=== PATIENT | female | born 1980 | race Caucasian/White ===

== ENCOUNTER 2018-01-01 09:15 | Emergency (ER) | payer OTHER ==
[2018-01-01 09:31] VITALS: BP 113/62; PULSE 99; TEMP 98.3; BMI 23.9
[2018-01-01] MEDS ORDERED: KETOROLAC TROMETHAMINE 30 MG/1 ML VIAL IM ONE (10:41)
[2018-01-01] MEDS ORDERED: DEXAMETHASONE LIQUID 0.5 MG/5 ML 240 ML BULK BOTTLE PO ONE (10:41)
[2018-01-01] MEDS ORDERED: DEXAMETHASONE SOD PHOSPHATE 10 MG/1 ML VIAL ONE (10:46)
[2018-01-01] MEDS ORDERED: KETOROLAC TROMETHAMINE 30 MG/1 ML VIAL ONE (10:47)
--- NOTE | 2018-01-01 11:02 | PDOC ---
History of Present Illness - General Chief Complaint: Cold Symptoms Stated Complaint: FEVER, THROAT PAIN Time Seen by Provider: 01/01/18 10:10 History Source: Patient Exam Limitations: No Limitations - History of Present Illness Initial Comments: 01/01/18 10:57 This is a 37-year-old woman with past medical history of asthma who presents to the emergency department with 2 days of sore throat fevers with MAXIMUM TEMPERATURE of 103.2F, headaches. Patient went to another hospital was given Toradol and discharged. Patient is been taken Tylenol most recently 11 PM to control fevers. She denies coughing, shortness of breath, chest pain, abdominal pain, nausea, vomiting, diarrhea. Past History - Past Medical History Allergies/Adverse Reactions: Allergies Allergy/AdvReac Type Severity Reaction Status Date / Time metronidazole [From Flagyl] Allergy rash, Verified 01/01/18 09:28 difficulty breathing piperacillin sodium Allergy rash, Verified 01/01/18 09:28 [From Zosyn] difficulty breathing latex AdvReac Rash Verified 01/01/18 09:28 Home Medications: Ambulatory Orders Azithromycin 500 mg PO DAILY #5 tablet 01/01/18 Anemia: Yes Asthma: Yes Cancer: No Cardiac Disorders: No CVA: No COPD: No CHF: No Dementia: No Diabetes: No GI Disorders: No Disorders: No HTN: No Hypercholesterolemia: No Liver Disease: No Psychiatric Problems: Yes (anxiety) Seizures: No Thyroid Disease: No - Reproductive History (#): 5 Para: 4 Spontaneous : 1 - Immunization History Immunization Up to Date: Yes - Suicide/Smoking/Psychosocial Hx Smoking Status: No Smoking History: Never smoked Have you smoked in the past 12 months: No Number of Cigarettes Smoked Daily: 0 If you are a former smoker, when did you quit?: 1999 Hx Alcohol Use: No Drug/Substance Use Hx: No Substance Use Type: None Hx Substance Use Treatment: No Review of Systems - Review of Systems Able to Perform ROS?: Yes Is the patient limited Finnish proficient: No Constitutional: Yes: See HPI HEENTM: Yes: See HPI Respiratory: No: Symptoms reported Cardiac (ROS): No: Symptoms Reported ABD/GI: No: Symptoms Reported : No: Symptoms Reported Musculoskeletal: No: Symptoms Reported Integumentary: No: Symptoms Reported Neurological: No: Symptoms reported *Physical Exam - Vital Signs Last Vital Signs Temp Pulse Resp BP Pulse Ox 98.3 F 99 H 19 113/62 98 01/01/18 09:28 01/01/18 09:28 01/01/18 09:28 01/01/18 09:28 01/01/18 09:28 - Physical Exam General Appearance: Yes: Appropriately Dressed. No: Apparent Distress HEENT: positive: TMs Normal, Pharyngeal Erythema, Tonsillar Exudate, Tonsillar Erythema Neck: positive: Trachea midline, Lymphadenopathy (R), Lymphadenopathy (L) Respiratory/Chest: positive: Lungs Clear, Normal Breath Sounds. negative: Respiratory Distress, Accessory Muscle Use Cardiovascular: positive: Regular Rhythm, Regular Rate. negative: Murmur Gastrointestinal/Abdominal: positive: Normal Bowel Sounds, Soft. negative: Tender Musculoskeletal: positive: Normal Inspection Extremity: positive: Normal Inspection Integumentary: positive: Normal Color, Dry, Warm Neurologic: positive: disease management nurse II-XII NML intact, Fully Oriented, Alert, Normal Mood/ Affect, Normal Response, Motor Strength 03/08 ED Treatment Course - Medications Given in the ED: ED Medications Discontinued Medications Generic Name Dose Route Start Last Admin Trade Name Freq PRN Reason Stop Dose Admin Dexamethasone 10 mg 01/01/18 10:41 01/01/18 10:51 Decadron Liquid - PO 01/01/18 10:42 10 mg ONCE ONE Administration Ketorolac Tromethamine 30 mg 01/01/18 10:41 01/01/18 10:51 Toradol Injection - IM 01/01/18 10:42 30 mg ONCE ONE Administration Medical Decision Making - Medical Decision Making 01/01/18 11:00 A/P: 37-year-old woman with history of asthma who presents with 2 days of headaches, fevers, sore throat. Oropharynx with pharyngeal and tonsillar erythema and tonsillar exudate. Halitosis present No sinus tenderness elicited. No nasal drainage present Anterior cervical lymphadenopathy present with tenderness noted on palpation. Lungs clear to auscultation bilaterally. DDx: Streptococcal pharyngitis versus viral illness Rapid strep testing, Toradol, Decadron Reassess 01/01/18 11:49 Rapid strep testing is positive. I will treat the patient with azithromycin 500 mg daily for 5 days. Patient instructed on how to treat the symptoms. *DC/Admit/Observation/Transfer Diagnosis at time of Disposition: Strep throat - Discharge Dispostion Disposition: HOME Condition at time of disposition: Stable Admit: No - Prescriptions Prescriptions: Azithromycin 500 mg PO DAILY #5 tablet - Referrals - Patient Instructions Additional Instructions: Take azithromycin as prescribed. Salt water garggles. Throw away your toothbrush in 1 week and start using a new toothbrush. No sharing of drinks, utensils or toothbrushes. Take Motrin as directed by manager logistic's instructions. Return to ED for worsening fevers, worsening sore throat, chest pain, shortness of breath or any other concerns. - Post Discharge Activity
== END 2018-01-01 11:52 | disposition home or self-care (01) ==
LOC: JERFT 09:15
PROC: 3E0233Z Introduction of Anti-inflammatory into Muscle, Percutaneous Approach (ICD-10-PCS; principal; 2018-01-01)
DX: J02.0 Streptococcal pharyngitis (principal); J45.909 Unspecified asthma, uncomplicated; F41.9 Anxiety disorder, unspecified; Z87.891 Personal history of nicotine dependence
CPT/HCPCS: 87070; 87430; 99281-25

== ENCOUNTER 2018-07-05 17:02 | Emergency (ER) | payer OTHER ==
[2018-07-05 17:14] VITALS: BP 141/82; PULSE 73; TEMP 98.3; BMI 25.0
[2018-07-05] MEDS ORDERED: SODIUM CHLORIDE 1,000 ML IV STA (17:30)
[2018-07-05] MEDS ORDERED: METOCLOPRAMIDE HCL INJECTION 10 MG/2 ML VIAL IVPUSH ONE (17:30)
[2018-07-05] MEDS ORDERED: KETOROLAC TROMETHAMINE 15 MG/ML VIAL IVPUSH ONE (17:30)
--- NOTE | 2018-07-05 17:38 | PDOC ---
History of Present Illness - General Chief Complaint: Headache Stated Complaint: PAIN Time Seen by Provider: 07/05/18 17:24 History Source: Patient Exam Limitations: No Limitations - History of Present Illness Initial Comments: 07/05/18 18:03 Patient is a 38F with history of migraines, asthma and hysterectomy here today complaining of a headache that started yesterday. She states that the headache slowly started yesterday spreading from her head to her neck and finally to her shoulder. She says that she took nothing this morning. Denies sound and light sensitivity. Denies fevers, chills, nausea, vomiting. Past History - Past Medical History Allergies/Adverse Reactions: Allergies Allergy/AdvReac Type Severity Reaction Status Date / Time metronidazole [From Flagyl] Allergy rash, Verified 07/05/18 17:14 difficulty breathing piperacillin sodium Allergy rash, Verified 07/05/18 17:14 [From Zosyn] difficulty breathing latex AdvReac Rash Verified 07/05/18 17:14 Home Medications: Ambulatory Orders Cetirizine HCl [Zyrtec -] 10 mg PO DAILY 07/05/18 Anemia: Yes Asthma: Yes Cancer: No Cardiac Disorders: No CVA: No COPD: No CHF: No Dementia: No Diabetes: No GI Disorders: No Disorders: No HTN: No Hypercholesterolemia: No Liver Disease: No Psychiatric Problems: Yes (anxiety) Seizures: No Thyroid Disease: No Other medical history: migraines - Reproductive History (#): 5 Para: 4 Spontaneous : 1 - Immunization History Immunization Up to Date: Yes - Suicide/Smoking/Psychosocial Hx Smoking Status: No Smoking History: Never smoked Have you smoked in the past 12 months: No Number of Cigarettes Smoked Daily: 0 If you are a former smoker, when did you quit?: 1999 Hx Alcohol Use: No Drug/Substance Use Hx: No Substance Use Type: None Hx Substance Use Treatment: No Review of Systems - Review of Systems Comments:: 07/05/18 18:33 GENERAL/CONSTITUTIONAL: No fever or chills. No weakness. HEAD, EYES, EARS, NOSE AND THROAT: No change in vision. No ear pain or discharge. No sore throat. CARDIOVASCULAR: No chest pain or shortness of breath RESPIRATORY: No cough, wheezing, or hemoptysis. GASTROINTESTINAL: No nausea, vomiting, diarrhea or constipation. GENITOURINARY: No dysuria, frequency, or change in urination. MUSCULOSKELETAL: No joint or muscle swelling or pain. No neck or back pain. SKIN: No rash NEUROLOGIC: + headache, no vertigo, loss of consciousness, or change in strength /sensation. ENDOCRINE: No increased thirst. No abnormal weight change HEMATOLOGIC/LYMPHATIC: No anemia, easy bleeding, or history of blood clots. ALLERGIC/IMMUNOLOGIC: No hives or skin allergy. *Physical Exam - Vital Signs Last Vital Signs Temp Pulse Resp BP Pulse Ox 98.3 F 73 18 141/82 99 07/05/18 17:11 07/05/18 17:11 07/05/18 17:11 07/05/18 17:11 07/05/18 17:11 - Physical Exam Comments: 07/05/18 18:33 GENERAL: Awake, alert, and fully oriented, in no acute distress HEAD: No signs of trauma, normocephalic, atraumatic EYES: PERRLA, EOMI, sclera anicteric, conjunctiva clear ENT: Auricles normal inspection, hearing grossly normal, nares patent, oropharynx clear without exudates. Moist mucosa NECK: Normal ROM, supple, no lymphadenopathy, JVD, or masses LUNGS: No distress, speaks full sentences, clear to auscultation bilaterally HEART: Regular rate and rhythm, normal S1 and S2, no murmurs, rubs or gallops, peripheral pulses normal and equal bilaterally. ABDOMEN: Soft, nontender, normoactive bowel sounds. No guarding, no rebound. No masses EXTREMITIES: Normal inspection, Normal range of motion, no edema. No clubbing or cyanosis. NEUROLOGICAL: Cranial nerves II through XII grossly intact. Normal speech, normal gait, no focal sensorimotor deficits SKIN: Warm, Dry, normal turgor, no rashes or lesions noted. ED Treatment Course - LABORATORY CBC & Chemistry Diagram: 07/05/18 18:58 07/05/18 18:58 Medical Decision Making - Medical Decision Making 07/05/18 18:34 Patient is 38F here today with headache. Vital signs normal and stable. No red flags for head bleed. Believe patient has tension headache. Will treat with fluids, toradol, reglan. Patient has hysterectomy, no need for test. 07/05/18 19:42 CBC, CMP reassuring. Patient reassessed, feeling better. Will discharge home with ibuprofen. *DC/Admit/Observation/Transfer Diagnosis at time of Disposition: Headache - Discharge Dispostion Disposition: HOME Condition at time of disposition: Good Decision to Admit order: No - Referrals Referrals: Michael Fortune [Primary Care Provider] - Michel Flores DO [Staff Physician] - - Patient Instructions Printed Discharge Instructions: DI for Hormonal and Tension Headaches Additional Instructions: Please drink plenty of water and take ibuprofen as needed and prescribed for pain. Please return to the ED if you have any new, worsening or concerning symptoms. Please follow up with your primary care provider and neurologist this week. - Post Discharge Activity
[2018-07-05] MEDS ORDERED: METOCLOPRAMIDE HCL INJECTION 10 MG/2 ML VIAL ONE (17:45)
[2018-07-05] MEDS ORDERED: KETOROLAC TROMETHAMINE 15 MG/ML VIAL ONE (17:46)
[2018-07-05 19:08] LABS: HEMATOCRIT 32.2 % (32.4-45.2); HEMOGLOBIN 10.9 GM/dL (10.7-15.3); MCH 29.8 pg (25.7-33.7); MCHC 33.8 g/dl (32.0-36.0); MEAN PLT VOLUME 7.9 fl (7.5-11.1); PLATELET COUNT 281 K/MM3 (134-434); RBC 3.66 M/mm3 (3.60-5.2); RDW 14.4 % (11.6-15.6); WHITE BLOOD COUNT 4.9 K/mm3 (4.0-10.0)
[2018-07-05 19:33] LABS: ALBUMIN 3.4 g/dl (3.4-5.0); ANION GAP 9 MMOL/L (8-16); BILIRUBIN,TOTAL 0.2 mg/dL (0.2-1.0); BLOOD UREA NITROGEN 12 mg/dL (7-18); CALCIUM 7.7 mg/dL (8.5-10.1); CHLORIDE 112 mmol/L (98-107); CO2 26 mmol/L (21-32); CREATININE 0.6 mg/dL (0.55-1.02); GLUCOSE,RANDOM 86 mg/dL (74-106); POTASSIUM 3.6 mmol/L (3.5-5.1); SGOT/AST 11 U/L (15-37); SGPT/ALT 18 U/L (12-78); SODIUM 147 mmol/L (136-145); TOT PROT 6.6 g/dl (6.4-8.2)
[2018-07-05 19:34] LABS: ALK PHOS 51 U/L (45-117)
[2018-07-05] MEDS ORDERED: diazePAM 5 MG TABLET PO ONE (19:51)
--- NOTE | 2018-07-05 19:54 | PDOC ---
Attending Attestation - Resident Resident Name: Faisal Mahan - ED Attending Attestation I have performed the following: I have examined & evaluated the patient, The case was reviewed & discussed with the resident, I agree w/resident's findings & plan, Exceptions are as noted - HPI HPI: 07/05/18 19:50 38-year-old female history of migraines for today complaining of a headache that started yesterday. No fevers chills no nausea no vomiting does have mild photophobia that she has pain on looking also complaining of right shoulder pain and muscle spasm no head trauma does have a history of frequent migraines usually relieved with Motrin however this one was more severe and longer lasting than usual no associated muscle weakness. - Physicial Exam PE: 07/05/18 19:51 Awake alert no acute distress except for motions are intact cranial nerves II through XII are intact lungs are clear bilaterally heart is regular without any murmurs rubs or gallops abdomen is soft and nontender extremities are warm and well-perfused neurologically patient is ANO 3 she has 5 out of 5 muscle strength in all 4 extremities. Muscle skeletal exam reviews trapezial muscle spasm and tenderness on the right side - Medical Decision Making 07/05/18 19:52 38-year-old female history of migraines here today with likely migraine headache. In addition patient has trapezial spasm likely contributing differential includes anemia, lecture laterality, is status post hysterectomy therefore is not of concern. Plan treat with Toradol and Reglan IV fluids CBC CMP and reassess On reassessment patient states her pain is nearly gone will give Valium 5 mg by mouth to relieve right trapezial muscle spasm and aid with the tension component we'll give referral to neurology as the patient does have frequent migraines
[2018-07-05] MEDS ORDERED: diazePAM 5 MG TABLET ONE (20:15)
== END 2018-07-05 20:23 | disposition home or self-care (01) ==
LOC: JER 17:02
PROC: 3E033GC Introduction of Other Therapeutic Substance into Peripheral Vein, Percutaneous Approach (ICD-10-PCS; principal; 2018-07-05)
PROC: 3E0337Z Introduction of Electrolytic and Water Balance Substance into Peripheral Vein, Percutaneous Approach (ICD-10-PCS; 2018-07-05)
DX: R51 Headache (principal)
CPT/HCPCS: 36415; 80053; 85027; 96361; 96374; 99282-25; J7030

== ENCOUNTER 2019-06-05 01:31 | Emergency (ER) | payer OTHER ==
--- NOTE | 2019-06-05 01:55 | PDOC ---
History of Present Illness - General Stated Complaint: SORE THROAT Time Seen by Provider: 06/05/19 01:55 - History of Present Illness Initial Comments: 38 year old female with PMH of seasonal allergies presenting with a sore throat and cough for the past 0.5 days. Patient states that her youngest daughter also became sick this morning while her eldest daughter had these symptoms two days ago which have since resolved. She denies fevers, chills, nausea, vomiting, diarrhea, or inability to tolerate PO. She has not tried any medication at home for her throat pain. She states that she cannot have more than 500 mg of tylenol or she starts to get facial swelling. However 500 mg does not cause any ill effect. Past History - Past Medical History Allergies/Adverse Reactions: Allergies Allergy/AdvReac Type Severity Reaction Status Date / Time metronidazole [From Flagyl] Allergy rash, Verified 06/05/19 02:04 difficulty breathing piperacillin sodium Allergy rash, Verified 06/05/19 02:04 [From Zosyn] difficulty breathing latex AdvReac Rash Verified 06/05/19 02:04 Home Medications: Ambulatory Orders Cetirizine HCl [Zyrtec -] 10 mg PO DAILY 07/05/18 Benzonatate [Tessalon Pearls -] 100 mg PO TID #21 capsule 06/05/19 Anemia: Yes Asthma: Yes Cancer: No Cardiac Disorders: No CVA: No COPD: No CHF: No Dementia: No Diabetes: No GI Disorders: No Disorders: No HTN: No Hypercholesterolemia: No Liver Disease: No Psychiatric Problems: Yes (anxiety) Seizures: No Thyroid Disease: No - Reproductive History (#): 5 Para: 4 Spontaneous : 1 - Immunization History Immunization Up to Date: Yes - Suicide/Smoking/Psychosocial Hx Smoking Status: No Smoking History: Never smoked Have you smoked in the past 12 months: No Number of Cigarettes Smoked Daily: 0 If you are a former smoker, when did you quit?: 1999 Hx Alcohol Use: No Drug/Substance Use Hx: No Substance Use Type: None Hx Substance Use Treatment: No Review of Systems - Review of Systems Constitutional: No: Chills, Diaphoresis, Fever HEENTM: No: Eye Pain, Blurred Vision, Tearing Respiratory: Yes: Cough. No: Shortness of Breath, Stridor, Wheezing, Productive cough Cardiac (ROS): No: Chest Pain, Edema, Irregular Heart Rate ABD/GI: No: Diarrhea, Nausea, Vomiting : No: Burning, Dysuria, Discharge Musculoskeletal: No: Back Pain, Joint Pain Integumentary: No: Bruising, Change in Color Neurological: No: Headache, Numbness, Paresthesia Psychiatric: No: Anxiety, Depression Hematologic/Lymphatic: No: Anemia, Blood Clots, Easy Bleeding *Physical Exam - Physical Exam General Appearance: Yes: Nourished, Appropriately Dressed. No: Apparent Distress HEENT: positive: EOMI, DAVID, Pharyngeal Erythema, Nasal Congestion. negative: Normal ENT Inspection, Pharynx Normal, Tonsillar Exudate, Tonsillar Erythema, Rhinorrhea Neck: positive: Trachea midline, Normal Thyroid, Supple. negative: Tender, Rigid, Stridor, Lymphadenopathy (R), Lymphadenopathy (L) Respiratory/Chest: positive: Lungs Clear, Normal Breath Sounds. negative: Chest Tender, Respiratory Distress, Accessory Muscle Use Cardiovascular: positive: Regular Rhythm, Regular Rate Gastrointestinal/Abdominal: positive: Normal Bowel Sounds, Flat, Soft. negative : Tender Lymphatic: negative: Adenopathy, Tenderness Musculoskeletal: positive: Normal Inspection. negative: Decreased Range of Motion Extremity: positive: Normal Capillary Refill, Normal Inspection, Normal Range of Motion. negative: Tender Integumentary: positive: Normal Color, Dry, Warm Neurologic: positive: Fully Oriented, Alert, Normal Mood/Affect, Normal Response , Motor Strength 5/5 Medical Decision Making - Medical Decision Making 38 year old female with mild cough and sore throat or the past 0.5 days without use of any medication. She has multiple sick contacts with nearly identical symptoms. PE significant for pharyngeal erythema but no tonsilar swelling or exudates. Given 325 Tylenol with good relief of symptoms and discharged with Tylenol use instructions + Tesalon Perls. *DC/Admit/Observation/Transfer Diagnosis at time of Disposition: Sore throat - Discharge Dispostion Disposition: HOME Condition at time of disposition: Improved Decision to Admit order: No - Prescriptions Prescriptions: Benzonatate [Tessalon Pearls -] 100 mg PO TID #21 capsule - Referrals Referrals: Rosanne Messer [Primary Care Provider] - - Patient Instructions Printed Discharge Instructions: Sore Throat Additional Instructions: Please use the tessalon perles and tylenol as needed. Please see your PCP as needed. Please return to the ED if you have new or worsening symptoms. - Post Discharge Activity
[2019-06-05 02:05] VITALS: BP 111/67; PULSE 68; TEMP 98.2; BMI 25.9
[2019-06-05] MEDS ORDERED: ACETAMINOPHEN 500 MG TABLET (FP) PO ONE (02:19)
[2019-06-05] MEDS ORDERED: ACETAMINOPHEN 325 MG TABLET (FP) PO ONE (02:25)
[2019-06-05] MEDS ORDERED: ACETAMINOPHEN 325 MG TABLET (FP) ONE (02:26)
--- NOTE | 2019-06-05 02:49 | PDOC ---
Attending Attestation - Resident Resident Name: Leighann Burger - ED Attending Attestation I have performed the following: I have examined & evaluated the patient, The case was reviewed & discussed with the resident, I agree w/resident's findings & plan, Exceptions are as noted - HPI HPI: 06/05/19 02:48 sore throat, +sick contacts here with family members Erich Rucker and Melvi Cazares
== END 2019-06-05 02:29 | disposition home or self-care (01) ==
LOC: JER 01:31
DX: J02.9 Acute pharyngitis, unspecified (principal)
CPT/HCPCS: 99281-25

== ENCOUNTER 2019-12-12 18:25 | Emergency (ER) | payer OTHER ==
[2019-12-12 18:59] VITALS: BMI 25.0
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
[2019-12-12] MEDS ORDERED: LIDOCAINE 5% TOPICAL PATCH TP ONE (19:58)
[2019-12-12] MEDS ORDERED: ACETAMINOPHEN 1000 MG/100 ML VIAL (NON FORMULARY) IVPB ONE (19:58)
[2019-12-12] MEDS ORDERED: methylPREDNISolone NA SUCC 125 MG/2 ML VIAL IVPUSH ONE (20:14)
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
[2019-12-12] MEDS ORDERED: SODIUM CHLORIDE 0.9% 500 ML INFUS.BAG IV ONE (21:10)
[2019-12-12] MEDS: ALBUTEROL SO4 0.083% IH SOL 2.5 MG/3 ML VIAL.NEB. NEB SCH ×2 (21:11→22:07)
[2019-12-12] MEDS ORDERED: ALBUTEROL SO4 2.5/IPRATROPIUM 0.5 INH SOL 3 ML VIAL.NEB. NEB SCH (21:15)
[2019-12-12 21:16] LABS: BASO % 0.6 % (0-2.0); EOS % 0.5 % (0-4.5); HEMATOCRIT 34.7 % (32.4-45.2); HEMOGLOBIN 11.9 GM/dL (10.7-15.3); LYMPH % 13.3 % (8-40); MCH 30.9 pg (25.7-33.7); MCHC 34.2 g/dl (32.0-36.0); MEAN CELL VOLUME 90.1 fl (80-96); MEAN PLT VOLUME 8.6 fl (7.5-11.1); MONO % 6.1 % (3.8-10.2); NEUT % 79.5 % (42.8-82.8); PLATELET COUNT 320 K/MM3 (134-434); RBC 3.85 M/mm3 (3.60-5.2); RDW 13.7 % (11.6-15.6); WHITE BLOOD COUNT 10.8 K/mm3 (4.0-10.0)
[2019-12-12] MEDS ORDERED: methylPREDNISolone NA SUCC 125 MG/2 ML VIAL ONE (21:43)
[2019-12-12] MEDS ORDERED: LIDOCAINE PATCH REMOVAL MC SCH (22:00)
[2019-12-12 22:59] LABS: ALBUMIN 3.8 g/dl (3.4-5.0); ALK PHOS 57 U/L (45-117); ANION GAP 9 MMOL/L (8-16); BILIRUBIN,TOTAL 0.6 mg/dL (0.2-1); BLOOD UREA NITROGEN 13.8 mg/dL (7-18); CALCIUM 9.3 mg/dL (8.5-10.1); CHLORIDE 108 mmol/L (98-107); CO2 24 mmol/L (21-32); CREATININE 0.7 mg/dL (0.55-1.3); GLUCOSE,RANDOM 87 mg/dL (74-106); POTASSIUM 3.7 mmol/L (3.5-5.1); SGOT/AST 17 U/L (15-37); SGPT/ALT 23 U/L (13-61); SODIUM 141 mmol/L (136-145); TOT PROT 7.3 g/dl (6.4-8.2)
[2019-12-12 23:25] VITALS: BP 112/66; PULSE 71; TEMP 97.4
[2019-12-12] MEDS ORDERED: METOCLOPRAMIDE HCL INJECTION 10 MG/2 ML VIAL IVPB ONE (23:45)
[2019-12-12] MEDS ORDERED: METOCLOPRAMIDE HCL INJECTION 10 MG/2 ML VIAL ONE (23:46)
[2019-12-12] MEDS ORDERED: LIDOCAINE 5% TOPICAL PATCH ONE (23:50)
--- NOTE | 2019-12-13 14:14 | EKG ---
Test Reason : Blood Pressure : / mmHG Vent. Rate : 095 BPM Atrial Rate : 095 BPM P-R Int : 164 ms QRS Dur : 084 ms QT Int : 338 ms P-R-T Axes : 059 009 047 degrees QTc Int : 424 ms NORMAL SINUS RHYTHM NORMAL ECG Confirmed by MD LUO GREGORY ([id number]) on 12/13/2019 2:14:37 PM Referred By: Confirmed By:EVELYN LUO MD
== END 2019-12-13 01:20 | disposition home or self-care (01) ==
LOC: JER 18:25
PROC: 3E0F7GC Introduction of Other Therapeutic Substance into Respiratory Tract, Via Natural or Artificial Opening (ICD-10-PCS; principal; 2019-12-12)
PROC: 3E033NZ Introduction of Analgesics, Hypnotics, Sedatives into Peripheral Vein, Percutaneous Approach (ICD-10-PCS; 2019-12-12)
PROC: 3E0333Z Introduction of Anti-inflammatory into Peripheral Vein, Percutaneous Approach (ICD-10-PCS; 2019-12-12)
PROC: 3E033GC Introduction of Other Therapeutic Substance into Peripheral Vein, Percutaneous Approach (ICD-10-PCS; 2019-12-12)
DX: R55 Syncope and collapse (principal); R51 Headache; M54.2 Cervicalgia; M79.601 Pain in right arm; R07.9 Chest pain, unspecified; Y04.2XXA Assault by strike against or bumped into by another person, initial encounter; Y93.89 Activity, other specified; Y92.038 Other place in apartment as the place of occurrence of the external cause; Y99.8 Other external cause status; Y07.499 Other family member, perpetrator of maltreatment and neglect; J45.901 Unspecified asthma with (acute) exacerbation; D64.9 Anemia, unspecified; F41.9 Anxiety disorder, unspecified; F32.9 Major depressive disorder, single episode, unspecified; Z91.040 Latex allergy status; Z88.1 Allergy status to other antibiotic agents; Z88.6 Allergy status to analgesic agent
CPT/HCPCS: 36415; 70450-TC; 70486-TC; 71046-TC-FY; 72125-TC; 73030-TC-RT-FY; 73060-TC-RT-FY; 73070-TC-RT-FY; 73090-TC-RT-FY; 73110-TC-RT-FY; 73130-TC-RT-FY; 80053; 82550; 84484; 84703; 85025; 93005; 93010; 99283-25; J0131

== ENCOUNTER 2023-07-22 16:36 | Emergency (ER) | payer OTHER ==
[2023-07-22 17:01] VITALS: BP 111/57; PULSE 69; RESP 18; TEMP 98.2; BMI 27.4
== END 2023-07-22 22:48 | disposition home or self-care (01) ==
LOC: JER 16:36 → JERFT 16:36
DX: M25.571 Pain in right ankle and joints of right foot (principal); M25.561 Pain in right knee; W01.0XXA Fall on same level from slipping, tripping and stumbling without subsequent striking against object, initial encounter
CPT/HCPCS: 73562-TC-RT-FY; 73610-TC-RT-FY; 73630-TC-RT-FY

== ENCOUNTER 2024-01-06 16:35 | Emergency (ER) | payer OTHER ==
[2024-01-06 16:50] VITALS: BP 122/83; PULSE 74; RESP 16; TEMP 98; BMI 27.8
[2024-01-06] MEDS ORDERED: METOCLOPRAMIDE HCL INJECTION 10 MG/2 ML VIAL ONE (17:40)
[2024-01-06] MEDS ORDERED: ACETAMINOPHEN INJECTION 100 ML IVPB ONE ×2 (17:40→17:46)
[2024-01-06] MEDS: SODIUM CHLORIDE 0.9% 500 ML INFUS.BAG IV ONE (18:08)
[2024-01-06] MEDS: METOCLOPRAMIDE HCL INJECTION 10 MG/2 ML VIAL IVPB ONE (18:09)
[2024-01-06] MEDS: ACETAMINOPHEN 1000 MG/100 ML BAG IVPB ONE (18:09)
[2024-01-06 18:22] LABS: BASO % 0.5 % (0-2.0); EOS % 1.5 % (0-4.5); HEMATOCRIT 38.2 % (32.4-45.2); HEMOGLOBIN 12.6 GM/dL (10.7-15.3); LYMPH % 22.6 % (8-40); MCH 30.5 pg (25.7-33.7); MCHC 32.9 g/dl (32.0-36.0); MEAN CELL VOLUME 92.7 fl (80-96); MEAN PLT VOLUME 7.9 fl (7.5-11.1); MONO % 7.9 % (3.8-10.2); NEUT % 67.5 % (42.8-82.8); PLATELET COUNT 300 10^3/uL (134-434); RBC 4.12 M/mm3 (3.60-5.2); WHITE BLOOD COUNT 6.1 K/mm3 (4.0-10.0)
[2024-01-06 18:34] LABS: POTASSIUM 4.3 mmol/L (3.5-5.1)
[2024-01-06 18:36] LABS: CALCIUM 8.9 mg/dL (8.5-10.1)
[2024-01-06 18:37] LABS: ALBUMIN 3.9 g/dl (3.4-5.0); BLOOD UREA NITROGEN 13.9 mg/dL (7-18)
[2024-01-06 18:40] LABS: CREATININE 0.7 mg/dL (0.55-1.3)
[2024-01-06 18:41] LABS: BILIRUBIN,TOTAL 0.2 mg/dL (0.2-1)
[2024-01-06 18:42] LABS: TOT PROT 7.7 g/dl (6.4-8.2)
== END 2024-01-06 20:32 | disposition home or self-care (01) ==
LOC: JER 16:35
PROC: 3E033NZ Introduction of Analgesics, Hypnotics, Sedatives into Peripheral Vein, Percutaneous Approach (ICD-10-PCS; principal; 2024-01-06)
PROC: 3E033GC Introduction of Other Therapeutic Substance into Peripheral Vein, Percutaneous Approach (ICD-10-PCS; 2024-01-06)
DX: H53.8 Other visual disturbances (principal); R20.2 Paresthesia of skin; R61 Generalized hyperhidrosis; G44.209 Tension-type headache, unspecified, not intractable
CPT/HCPCS: 36415; 70450-TC; 70480-TC; 71046-TC-FY; 80053; 84484; 84703; 85025; 93005; 93010; 99285-25; J0131

== ENCOUNTER 2024-08-01 12:34 | Emergency (ER) | payer OTHER ==
[2024-08-01 12:38] VITALS: BP 121/69; PULSE 69; RESP 17; TEMP 97.9; BMI 27.6
[2024-08-01] MEDS ORDERED: MECLIZINE HCL 25 MG TABLET (FP) ONE (14:06)
[2024-08-01] MEDS: MECLIZINE HCL 25 MG TABLET (FP) PO ONE (14:21)
[2024-08-01 14:27] LABS: BASO % 0.3 % (0-2.0); EOS % 1.2 % (0-4.5); HEMATOCRIT 35.1 % (32.4-45.2); HEMOGLOBIN 11.5 GM/dL (10.7-15.3); LYMPH % 22.5 % (8-40); MCH 29.9 pg (25.7-33.7); MCHC 32.7 g/dl (32.0-36.0); MEAN CELL VOLUME 91.5 fl (80-96); MEAN PLT VOLUME 7.8 fl (7.5-11.1); MONO % 7.6 % (3.8-10.2); NEUT % 68.4 % (42.8-82.8); PLATELET COUNT 267 10^3/uL (134-434); RBC 3.84 M/mm3 (3.60-5.2); RDW 13.8 % (11.6-15.6); WHITE BLOOD COUNT 6.7 K/mm3 (4.0-10.0)
[2024-08-01 14:44] LABS: POTASSIUM 4.5 mmol/L (3.5-5.1)
[2024-08-01 14:47] LABS: CALCIUM 9.4 mg/dL (8.5-10.1)
[2024-08-01 14:48] LABS: ALBUMIN 3.6 g/dl (3.4-5.0); BLOOD UREA NITROGEN 7.2 mg/dL (7-18)
[2024-08-01 14:51] LABS: CREATININE 0.5 mg/dL (0.55-1.3)
[2024-08-01 14:52] LABS: BILIRUBIN,TOTAL 0.3 mg/dL (0.2-1); TOT PROT 6.8 g/dl (6.4-8.2)
[2024-08-01] MEDS ORDERED: ACETAMINOPHEN 500 MG TABLET (FP) ONE (16:13)
[2024-08-01] MEDS ORDERED: PSEUDOEPHEDRINE HCL 60 MG TABLET ONE (16:16)
[2024-08-01] MEDS: ACETAMINOPHEN 500 MG TABLET (FP) PO ONE (16:19)
[2024-08-01] MEDS: PSEUDOEPHEDRINE HCL 60 MG TABLET PO ONE (16:20)
== END 2024-08-01 18:58 | disposition home or self-care (01) ==
LOC: JER 12:34
DX: R42 Dizziness and giddiness (principal); R00.2 Palpitations; R51.9 Headache, unspecified
CPT/HCPCS: 36415; 70450-TC; 80053; 85025; 93005; 93010; 99285-25